=== PATIENT | male | born 1950 | race Hispanic/Latino ===

== ENCOUNTER 2017-05-09 14:30 | Inpatient (IN) | payer OTHER ==
[~2017-05-09] VITALS: Ht 175.3 cm; Wt 92.5 kg
[2017-05-23 16:47] VITALS: BP 150/79
[2017-05-23 16:56] LABS: BASOPHILS % (AUTO) 3.4 % (0.0-5.0); EOSINOPHILS % (AUTO) 7.8 % (0.0-8.0); HEMATOCRIT 41.6 % (42-54); LYMPHOCYTES % (AUTO) 29.9 % (21.0-51.0); MEAN CORPUSCULAR HEMOGLOBIN 27.6 pg (27.0-33.0); MEAN CORPUSCULAR HGB CONC 33.2 g/dL (32.0-36.0); MEAN CORPUSCULAR VOLUME 83.4 fL (79-99); NEUTROPHILS % (AUTO) 51.9 % (40.0-77.0); PLATELET COUNT (AUTO) 306 K/uL (130-400); RED BLOOD CELL COUNT(AUTO) 4.98 MIL/uL (4.50-6.20); RED CELL DISTRIBUTION WIDTH 15.9 % (11.0-15.5); WHITE BLOOD COUNT (AUTO) 12.8 K/uL (4.8-10.8)
[2017-05-23 16:56] LABS: APPEARANCE,URINE Clear (CLEAR); BILIRUBIN,URINE Negative (NEGATIVE); COLOR,URINE Yellow (YELLOW); GLUCOSE, URINE (UA) Negative (NEGATIVE); KETONES,URINE Negative (NEGATIVE); LEUKOCYTE ESTERASE ,URINE Large (NEGATIVE); NITRATE,URINE Negative (NEGATIVE); OCCULT BLOOD,URINE Negative (NEGATIVE); PH,URINE 5.5 (5.0-8.0); PROTEIN,URINE Negative (NEGATIVE); UROBILINOGEN,URINE 0.2 mg/dL (0.2-1.0)
[2017-05-23] MEDS ORDERED: GLIP10TA9 PO (17:02)
[2017-05-23] MEDS ORDERED: OMEG1CAP67 PO (17:02)
[2017-05-23] MEDS ORDERED: GEMF600T3 PO (17:02)
[2017-05-23] MEDS ORDERED: METF10004 PO (17:02)
[2017-05-23] MEDS ORDERED: LOSA50TA37 PO (17:02)
[2017-05-23] MEDS ORDERED: ASPI-1197 PO (17:02)
[2017-05-23] MEDS ORDERED: METO50TA18 PO (17:02)
[2017-05-23] MEDS ORDERED: NPH,100V11 SQ ×2 (17:02)
[2017-05-23] MEDS ORDERED: MULTIVITAMIN PO (17:02)
[2017-05-23] MEDS ORDERED: TAMS0.4C32 PO (17:02)
[2017-05-23 17:17] LABS: RBC,URINE 0-1 /HPF (0-1)
[2017-05-23 17:22] LABS: INR 0.95 (0.85-1.15)
[2017-05-23 17:23] LABS: BACTERIA,URINE Rare /HPF (None Seen); SQUAMOUS EPITHELIAL CELL,UR Rare /HPF (0-2)
[2017-05-23 17:39] LABS: CREATININE 1.3 mg/dL (0.5-1.5); POTASSIUM 5.3 mmol/L (3.5-5.1)
[2017-05-24] VITALS (20 sets, daily range): BP systolic 102–147; BP diastolic 52–85
[2017-05-24] MEDS: CEFAZOLIN SODIUM 1 GM VIAL IVP SCH ×3 (06:00→18:19)
[2017-05-24] MEDS ORDERED: SODIUM CHLORIDE 0.9% 1000ML 1,000 ML IV ONE (09:57)
[2017-05-24] MEDS: GENTAMICIN SULFATE 240 MG in SODIUM CHLORIDE 0.9% 100 ML IV SCH ×2 (10:24)
[2017-05-24] MEDS ORDERED: BETA1TAB20 PO (10:32)
[2017-05-24] MEDS ORDERED: CEFAZOLIN SODIUM 1 GM VIAL ONE (10:38)
[2017-05-24] MEDS ORDERED: BUPIVACAINE/EPI/PF 0.25% 30ML VIAL IJ ONE (10:38)
[2017-05-24] MEDS ORDERED: TRANEXAMIC ACID 1000MG/10ML IV ONE (10:39)
[2017-05-24] MEDS ORDERED: KETOROLAC TROMETHAMINE 15MG/ML ONE (10:54)
[2017-05-24] MEDS ORDERED: OXYCODONE HCL 10 MG TAB.SR.12H PO ONE (10:54)
[2017-05-24] MEDS ORDERED: ACETAMINOPHEN EXTRA STRENGTH 500 MG TABLET ONE (10:54)
[2017-05-24] MEDS ORDERED: METOCLOPRAMIDE 10 MG/2 ML VIAL ONE (10:54)
[2017-05-24] MEDS ORDERED: CELECOXIB 200 MG CAP ONE (10:54)
[2017-05-24] MEDS ORDERED: FENTANYL CITRATE PF 50 MCG/1 ML 2ML VIAL ONE (12:05)
[2017-05-24] MEDS ORDERED: MIDAZOLAM HCL 1 MG/ML 2ML VIAL ONE (12:05)
[2017-05-24] MEDS ORDERED: PROPOFOL 10 MG/ML 20ML VIAL IV ONE (12:05)
[2017-05-24] MEDS ORDERED: ROPIVACAINE 0.5% 5MG/ML 30ML IJ ONE ×2 (12:09→14:09)
[2017-05-24] MEDS ORDERED: GLYCOPYRROLATE 0.2 MG/ML 5 ML VIAL ONE (14:09)
[2017-05-24] MEDS ORDERED: NEOSTIGMINE METHYLSULFATE 1MG/ML IV ONE (14:09)
[2017-05-24] MEDS ORDERED: ONDANSETRON HCL MDV 20ML 2 MG/ML VIAL ONE (14:09)
[2017-05-24] MEDS ORDERED: DEXAMETHASONE SOD PHOSPHATE 10MG/ML 1ML VIAL ONE (14:09)
[2017-05-24] MEDS ORDERED: DIPHENHYDRAMINE HCL 25 MG CAPSULE PO PRN (14:30)
[2017-05-24] MEDS ORDERED: FERROUS FUMARATE 324 MG TABLET PO PRN (14:30)
[2017-05-24] MEDS ORDERED: TEMAZEPAM 15 MG CAPSULE PO PRN (14:30)
[2017-05-24] MEDS: ACETAMINOPHEN 325 MG TAB PO SCH ×2 (14:30→20:30)
[2017-05-24] MEDS ORDERED: POTASSIUM CHLORIDE 10% ELIXIR 20 MEQ/15 ML UDCUP PO PRN (14:30)
[2017-05-24] MEDS ORDERED: POTASSIUM CHLORIDE 20 MEQ ERTAB PO PRN (14:30)
[2017-05-24] MEDS ORDERED: PROMETHAZINE HCL 25 MG/ML 1ML AMPULE IM PRN (14:30)
[2017-05-24] MEDS ORDERED: TRAMADOL HCL 50 MG TABLET PO PRN (14:30)
[2017-05-24] MEDS ORDERED: DiphenhydrAMINE HCL 50 MG/ML VIAL IVP PRN (14:30)
[2017-05-24] MEDS ORDERED: LIDOCAINE HCL-MPF 1% 2ML VIAL IVP PRN (14:30)
[2017-05-24] MEDS ORDERED: POTASSIUM CHLORIDE 20MEQ/100ML 100 ML IV PRN (14:30)
[2017-05-24] MEDS ORDERED: MEPERIDINE-PF 25 MG/ML SYG ONE (14:57)
[2017-05-24] MEDS: INSULIN HUMULIN R 100 UNIT/ML 3ML SQ SCH ×2 (16:30→20:37)
[2017-05-24] MEDS: SODIUM CHLORIDE 0.9% 1000ML 1,000 ML IV SCH ×2 (16:43→23:09)
[2017-05-24] MEDS: METFORMIN HCL 500 MG TABLET PO SCH (17:01)
[2017-05-24] MEDS: GLIPIZIDE 5 MG TABLET PO SCH (17:01)
[2017-05-24] MEDS ORDERED: COMPOUND IV REFRIGERATED 1 EACH IVSOLN MISC PRN ×2 (17:15→17:45)
[2017-05-24] MEDS ORDERED: CEFAZOLIN 2GM / 50 ML 50 ML IV SCH (19:30)
[2017-05-24] MEDS: METOPROLOL TARTRATE 50 MG TAB PO SCH (20:30)
[2017-05-24] MEDS: TAMSULOSIN HCL 0.4 MG CAP.ER.24H PO SCH (20:30)
[2017-05-24] MEDS: LOSARTAN 50 MG TABLET PO SCH (20:30)
[2017-05-24] MEDS: CELECOXIB 200 MG CAP PO SCH (20:30)
[2017-05-24] MEDS: ASPIRIN 325 MG TABLET PO SCH (20:30)
[2017-05-24] MEDS: FISH OIL 1000 MG/CAP PO SCH (20:31)
[2017-05-24] MEDS: GEMFIBROZIL 600 MG TABLET PO SCH (20:31)
[2017-05-24] MEDS: KETOROLAC TROMETHAMINE 15MG/ML IV PRN (20:34)
[2017-05-24] MEDS ORDERED: FAMOTIDINE 20MG TAB 20 MG TAB PO SCH (21:00)
[2017-05-24] MEDS ORDERED: PREGABALIN 25 MG CAP PO SCH (21:00)
[2017-05-24] MEDS: OXYCODONE HCL 5 MG TAB PO PRN (21:51)
[2017-05-24] MEDS: INSULIN NPH 100 UNIT/ML 3ML SQ SCH (21:57)
[2017-05-25] VITALS (7 sets, daily range): BP systolic 116–158; BP diastolic 64–82
[2017-05-25] MEDS: CEFAZOLIN SODIUM 1 GM VIAL IVP SCH (02:13)
[2017-05-25] MEDS: OXYCODONE HCL 5 MG TAB PO PRN ×2 (02:13→16:32)
[2017-05-25] MEDS: ACETAMINOPHEN 325 MG TAB PO SCH ×4 (02:13→20:44)
[2017-05-25 05:25] LABS: HEMATOCRIT 32.4 % (42-54); MEAN CORPUSCULAR HEMOGLOBIN 27.3 pg (27.0-33.0); MEAN CORPUSCULAR HGB CONC 32.9 g/dL (32.0-36.0); MEAN CORPUSCULAR VOLUME 83.1 fL (79-99); PLATELET COUNT (AUTO) 221 K/uL (130-400); RED CELL DISTRIBUTION WIDTH 15.3 % (11.0-15.5); WHITE BLOOD COUNT (AUTO) 14.5 K/uL (4.8-10.8)
[2017-05-25 05:42] LABS: CREATININE 1.5 mg/dL (0.5-1.5)
[2017-05-25] MEDS: INSULIN HUMULIN R 100 UNIT/ML 3ML SQ SCH ×4 (06:00→20:56)
[2017-05-25] MEDS ORDERED: PHARMACY COMMUNICATION MISC SCH (09:00)
[2017-05-25] MEDS: MULTIVITAMIN WITH MINERALS TABLET PO SCH (09:00)
[2017-05-25] MEDS: KETOROLAC TROMETHAMINE 15MG/ML IV PRN ×2 (09:33→20:52)
[2017-05-25] MEDS: SODIUM CHLORIDE 0.9% 1000ML 1,000 ML IV SCH (10:19)
[2017-05-25] MEDS: INSULIN NPH 100 UNIT/ML 3ML SQ SCH ×2 (10:22→20:55)
[2017-05-25] MEDS: CELECOXIB 200 MG CAP PO SCH ×2 (10:23→20:42)
[2017-05-25] MEDS: GEMFIBROZIL 600 MG TABLET PO SCH ×2 (10:23→20:41)
[2017-05-25] MEDS: CALCIUM CARBONATE 500 MG TABLET PO PRN ×2 (10:23→22:56)
[2017-05-25] MEDS: FISH OIL 1000 MG/CAP PO SCH ×2 (10:23→20:41)
[2017-05-25] MEDS: ASPIRIN 325 MG TABLET PO SCH ×2 (10:23→20:42)
[2017-05-25] MEDS: PREGABALIN 75 MG CAPSULE PO SCH ×2 (10:23→20:41)
[2017-05-25] MEDS: METOPROLOL TARTRATE 50 MG TAB PO SCH ×2 (10:23→20:42)
[2017-05-25] MEDS: POLYETHYLENE GLYCOL 3350 17 GM POWD.PACK PO SCH (10:24)
[2017-05-25] MEDS: GLIPIZIDE 5 MG TABLET PO SCH ×2 (10:27→16:32)
[2017-05-25] MEDS: METFORMIN HCL 500 MG TABLET PO SCH ×2 (10:27→16:32)
[2017-05-25] MEDS: GENTAMICIN SULFATE 240 MG in SODIUM CHLORIDE 0.9% 100 ML IV SCH (10:29)
[2017-05-25] MEDS: PSYLLIUM SEED 1 EACH PACKET PO SCH (11:56)
[2017-05-25] MEDS: TAMSULOSIN HCL 0.4 MG CAP.ER.24H PO SCH (20:41)
[2017-05-25] MEDS: LOSARTAN 50 MG TABLET PO SCH (20:41)
[2017-05-26] MEDS: ACETAMINOPHEN 325 MG TAB PO SCH ×3 (03:48→14:36)
[2017-05-26 04:00] VITALS: BP 119/66
[2017-05-26] MEDS: INSULIN HUMULIN R 100 UNIT/ML 3ML SQ SCH ×2 (05:46→13:09)
[2017-05-26] MEDS: FISH OIL 1000 MG/CAP PO SCH (08:39)
[2017-05-26] MEDS: OXYCODONE HCL 5 MG TAB PO PRN (08:39)
[2017-05-26] MEDS: METFORMIN HCL 500 MG TABLET PO SCH (08:39)
[2017-05-26] MEDS: MULTIVITAMIN WITH MINERALS TABLET PO SCH (08:39)
[2017-05-26] MEDS: GEMFIBROZIL 600 MG TABLET PO SCH (08:39)
[2017-05-26] MEDS: METOPROLOL TARTRATE 50 MG TAB PO SCH (08:40)
[2017-05-26] MEDS: GLIPIZIDE 5 MG TABLET PO SCH (08:40)
[2017-05-26] MEDS: PREGABALIN 75 MG CAPSULE PO SCH (08:40)
[2017-05-26] MEDS: ASPIRIN 325 MG TABLET PO SCH (08:40)
[2017-05-26] MEDS: CELECOXIB 200 MG CAP PO SCH (08:40)
[2017-05-26 08:42] VITALS: BP 137/67
[2017-05-26] MEDS: POLYETHYLENE GLYCOL 3350 17 GM POWD.PACK PO SCH (08:45)
[2017-05-26] MEDS: INSULIN NPH 100 UNIT/ML 3ML SQ SCH (08:51)
[2017-05-26] MEDS: GENTAMICIN SULFATE 240 MG in SODIUM CHLORIDE 0.9% 100 ML IV SCH (10:45)
[2017-05-26 11:51] VITALS: BP 126/68
[2017-05-26] MEDS: PSYLLIUM SEED 1 EACH PACKET PO SCH (13:00)
[2017-05-26] MEDS: KETOROLAC TROMETHAMINE 15MG/ML IV PRN (13:09)
[2017-05-26] MEDS ORDERED: BISACODYL 5 MG TABLET.DR PO PRN (14:30)
[2017-05-26] MEDS ORDERED: ASPI-1012 PO (15:14)
[2017-05-26] MEDS ORDERED: HYDR-309 PO (15:14)
[2017-05-27] MEDS ORDERED: BISACODYL 10 MG SUPP.RECT RC PRN (14:30)
== END 2017-05-26 17:34 | disposition home health service (06) | DRG 470 ==
LOC: EDSTATUS 05-23 16:00 → DAHIP 05-24 09:10 → 4AH 05-24 15:33
PROVIDERS: ADMIT Orthopaedic Surgery; ATTEND Orthopaedic Surgery
PROC: 0SRD0JZ Replacement of Left Knee Joint with Synthetic Substitute, Open Approach (ICD-10-PCS; principal; 2017-05-24 12:03)
DX: M17.12 Unilateral primary osteoarthritis, left knee (principal); E66.01 Morbid (severe) obesity due to excess calories; E11.9 Type 2 diabetes mellitus without complications; I10 Essential (primary) hypertension; Z96.652 Presence of left artificial knee joint; G89.29 Other chronic pain; Z68.30 Body mass index [BMI] 30.0-30.9, adult; Z88.8 Allergy status to other drugs, medicaments and biological substances
CPT/HCPCS: 36415; 80048; 81001; 82948; 85025; 85027; 85610; 85730; 88304; 88311; 96374; 96375; A4218; C1713; J0690; J1100; J1580; J1815; J1885; J2175; J2250; J2704; J2710; J2765; J2795; J3010; J3490; J7030

== ENCOUNTER → 2018-03-28 | Outpatient (CLI) | payer OTHER ==
[~2018-03-28] MED LIST: ASPI-1012 PO; BETA1TAB20 PO; GEMF600T5 PO; GLIP10TA9 PO; HYDR-4457 PO; LOSA50TA64 PO; METF-446 PO; METO50TA18 PO; NPH,100V11 SQ; OMEG1CAP67 PO; TAMS0.4C32 PO
== END | disposition home or self-care (01) ==
LOC: OIH 11:01
PROVIDERS: ATTEND Family Medicine
DX: I10 Essential (primary) hypertension (principal); I70.0 Atherosclerosis of aorta
CPT/HCPCS: 71046

== ENCOUNTER → 2020-04-03 | Outpatient (CLI) | payer OTHER ==
[~2020-04-03] MED LIST changes: -GEMF600T5 PO; +GEMF600T89 PO
== END | disposition home or self-care (01) ==
LOC: RAH 08:33
PROVIDERS: ATTEND Urology
DX: N28.1 Cyst of kidney, acquired (principal); N32.3 Diverticulum of bladder
CPT/HCPCS: 76770

== ENCOUNTER 2020-12-28 10:00 | Inpatient (IN) | payer OTHER ==
[~2020-12-28] VITALS: Ht 172.7 cm; Wt 95.3 kg
[~2020-12-28 10:00] MED LIST changes: -ASPI-1012 PO; -GEMF600T89 PO; -HYDR-4457 PO
[2020-12-28 10:24] LABS: BASOPHILS % (AUTO) 0.8 % (0.0-5.0); EOSINOPHILS % (AUTO) 4.7 % (0.0-8.0); HEMATOCRIT 43.8 % (42-54); LYMPHOCYTES % (AUTO) 26.2 % (21.0-51.0); MEAN CORPUSCULAR HEMOGLOBIN 28.5 pg (27.0-33.0); MEAN CORPUSCULAR VOLUME 89.2 fL (79-99); MONOCYTES % (AUTO) 7.7 % (3.0-13.0); NEUTROPHILS % (AUTO) 60.2 % (40.0-77.0); PLATELET COUNT (AUTO) 200 K/uL (130-400); RED BLOOD CELL COUNT(AUTO) 4.91 MIL/uL (4.50-6.20); RED CELL DISTRIBUTION WIDTH 14.9 % (11.0-15.5); WHITE BLOOD COUNT (AUTO) 11.5 K/uL (4.8-10.8)
[2020-12-28 10:26] LABS: APPEARANCE,URINE Clear (CLEAR); BILIRUBIN,URINE Negative (NEGATIVE); COLOR,URINE Yellow (YELLOW); GLUCOSE, URINE (UA) Negative (NEGATIVE); KETONES,URINE Negative (NEGATIVE); LEUKOCYTE ESTERASE ,URINE Negative (NEGATIVE); NITRATE,URINE Negative (NEGATIVE); OCCULT BLOOD,URINE Negative (NEGATIVE); PH,URINE 5.5 (5.0-8.0); PROTEIN,URINE Trace mg/dL (NEGATIVE); UROBILINOGEN,URINE 0.2 mg/dL (0.2-1.0)
[2020-12-28 10:34] LABS: BACTERIA,URINE Rare /HPF (None Seen); RBC,URINE 0-1 /HPF (0-1); SQUAMOUS EPITHELIAL CELL,UR Rare /HPF (0-2); WBC,URINE 0-1 /HPF (0-1)
[2020-12-28 10:34] LABS: CREATININE 1.3 mg/dL (0.5-1.5); POTASSIUM 4.7 mmol/L (3.5-5.1)
[2020-12-28 10:35] LABS: PROTHROMBIN TIME 10.9 SEC (9.6-11.6)
[2020-12-29 10:14] VITALS: BP 151/81
[2020-12-29] MEDS ORDERED: EZET10TA48 PO (10:49)
[2020-12-29] MEDS ORDERED: AEC81 PO (10:49)
[2020-12-29] MEDS ORDERED: ALEN70TA80 PO (10:49)
[2020-12-29] MEDS ORDERED: ATOR10 PO (10:49)
[2020-12-30] VITALS (15 sets, daily range): BP systolic 134–166; BP diastolic 70–91
[2020-12-30] MEDS ORDERED: LACTATED RINGERS 1000ML 0 ML IV ONE (10:27)
[2020-12-30] MEDS: 0.9%NACL 1000ML 1,000 ML IV ONE ×2 (10:32→11:07)
[2020-12-30] MEDS: CEFAZOLIN SODIUM 1 GM VIAL IVP SCH ×2 (11:07→16:45)
[2020-12-30] MEDS ORDERED: TRANEXAMIC ACID 1000MG/10ML ONE ×2 (15:37→19:15)
[2020-12-30] MEDS ORDERED: CEFAZOLIN SODIUM 1 GM VIAL ONE (15:37)
[2020-12-30] MEDS ORDERED: ONDANSETRON 4MG INJ ONE (16:00)
[2020-12-30] MEDS ORDERED: MIDAZOLAM HCL 1 MG/ML 2ML VIAL ONE (16:00)
[2020-12-30] MEDS ORDERED: LIDOCAINE PF 100MG/5ML (2%) SYRINGE 5ML ONE (16:04)
[2020-12-30] MEDS ORDERED: PROPOFOL 10 MG/ML 20ML VIAL IV ONE (16:05)
[2020-12-30] MEDS ORDERED: ROCURONIUM 10MG/1ML SYR 10 MG/ML ML ONE ×2 (16:05→17:07)
[2020-12-30] MEDS ORDERED: ROPIVACAINE 0.5% 5MG/ML 30ML IJ ONE (16:10)
[2020-12-30] MEDS ORDERED: DEXAMETHASONE SOD PHOSPHATE 10MG/ML 1ML VIAL ONE (16:16)
[2020-12-30] MEDS ORDERED: FENTANYL CITRATE PF 50 MCG/1 ML 2ML VIAL ONE ×2 (16:32→17:13)
[2020-12-30] MEDS ORDERED: GLYCOPYRROLATE 1 MG/5 ML SYRINGE ONE (18:50)
[2020-12-30] MEDS ORDERED: NEOSTIGMINE 5MG/5ML SYR IV ONE (18:50)
[2020-12-30] MEDS ORDERED: ESMOLOL HCL 10 MG/ML 10 ML VIAL ONE (18:53)
[2020-12-30] MEDS ORDERED: KCL 20 MEQ ERTAB PO PRN (19:00)
[2020-12-30] MEDS ORDERED: TEMAZEPAM 15 MG CAPSULE PO PRN (19:00)
[2020-12-30] MEDS ORDERED: POTASSIUM CHLORIDE 20MEQ/100ML 100 ML IV PRN (19:00)
[2020-12-30] MEDS ORDERED: OXYCODONE HCL 5 MG TAB PO PRN (19:00)
[2020-12-30] MEDS: ACETAMINOPHEN 500 MG TABLET PO SCH (19:00)
[2020-12-30] MEDS ORDERED: CALCIUM CARB 500MG PO PRN (19:00)
[2020-12-30] MEDS ORDERED: LIDOCAINE HCL-MPF 1% 2ML VIAL IV PRN (19:00)
[2020-12-30] MEDS ORDERED: ONDANSETRON 4MG INJ IVP PRN (19:00)
[2020-12-30] MEDS: 0.9%NACL 1000ML 1,000 ML IV SCH (19:00)
[2020-12-30] MEDS ORDERED: TRAMADOL HCL 50 MG TABLET PO PRN (19:00)
[2020-12-30] MEDS ORDERED: FERROUS FUMARATE 324 MG TABLET PO PRN (19:00)
[2020-12-30] MEDS ORDERED: DiphenhydrAMINE HCL 50 MG/ML VIAL IVP PRN (19:00)
[2020-12-30] MEDS ORDERED: POTASSIUM CHLORIDE 10% ELIXIR 20 MEQ/15 ML UDCUP PO PRN (19:00)
[2020-12-30] MEDS: PREGABALIN 25 MG CAP PO SCH (21:00)
[2020-12-30] MEDS: INSULIN HUMULIN R 100 UNIT/ML 3ML SQ SCH (21:00)
[2020-12-30] MEDS: ASPIRIN 81 MG EC TAB PO SCH (21:00)
[2020-12-30] MEDS: CELECOXIB 200 MG CAP PO SCH (21:00)
[2020-12-31] MEDS: CEFAZOLIN SODIUM 1 GM VIAL IVP SCH ×2 (00:15→09:45)
[2020-12-31] MEDS: OXYCODONE HCL 5 MG TAB PO PRN ×3 (02:53→21:28)
[2020-12-31] MEDS: ACETAMINOPHEN 500 MG TABLET PO SCH ×3 (02:54→21:30)
[2020-12-31 03:50] VITALS: BP 152/82
[2020-12-31] MEDS: 0.9%NACL 1000ML 1,000 ML IV SCH ×2 (05:00→15:00)
[2020-12-31 05:19] LABS: HEMATOCRIT 36.6 % (42-54); MEAN CORPUSCULAR HEMOGLOBIN 28.2 pg (27.0-33.0); MEAN CORPUSCULAR HGB CONC 32.2 g/dL (32.0-36.0); MEAN CORPUSCULAR VOLUME 87.4 fL (79-99); RED BLOOD CELL COUNT(AUTO) 4.19 MIL/uL (4.50-6.20); WHITE BLOOD COUNT (AUTO) 12.4 K/uL (4.8-10.8)
[2020-12-31 05:33] LABS: CREATININE 1.3 mg/dL (0.5-1.5); POTASSIUM 4.3 mmol/L (3.5-5.1)
[2020-12-31] MEDS: INSULIN HUMULIN R 100 UNIT/ML 3ML SQ SCH ×4 (06:55→21:39)
[2020-12-31 07:51] VITALS: BP 160/76
[2020-12-31] MEDS: CELECOXIB 200 MG CAP PO SCH ×2 (08:17→21:28)
[2020-12-31] MEDS: ASPIRIN 81 MG EC TAB PO SCH ×2 (08:18→21:29)
[2020-12-31] MEDS: GLIPIZIDE 5 MG TABLET PO SCH ×2 (08:18→17:35)
[2020-12-31] MEDS: PREGABALIN 25 MG CAP PO SCH ×2 (08:19→21:28)
[2020-12-31] MEDS: METFORMIN HCL 500 MG TABLET PO SCH ×2 (08:19→17:34)
[2020-12-31] MEDS: METOPROLOL TARTRATE 50 MG TAB PO SCH ×2 (08:20→21:29)
[2020-12-31] MEDS: POLYETHYLENE GLYCOL 3350 17 GM POWD.PACK PO SCH (08:20)
[2020-12-31] MEDS: INSULIN NPH 100 UNIT/ML 3ML SQ SCH (08:31)
[2020-12-31] MEDS: ALENDRONATE SODIUM 35 MG TAB PO SCH (09:00)
[2020-12-31] MEDS ORDERED: TAMSULOSIN HCL 0.4 MG CAP.ER.24H PO SCH ×2 (09:00→21:00)
[2020-12-31 11:15] VITALS: BP 156/91
[2020-12-31] MEDS: KETOROLAC 15MG/ML VIAL (15MG/ML) IV PRN (13:48)
[2020-12-31 16:02] VITALS: BP 135/74
[2020-12-31 20:54] VITALS: BP 156/77
[2020-12-31] MEDS ORDERED: INSULIN NPH 100 UNIT/ML 3ML SQ SCH (21:00)
[2020-12-31] MEDS ORDERED: EZETIMIBE 10 MG TAB PO SCH (21:00)
[2020-12-31] MEDS ORDERED: LOSARTAN 50 MG TABLET PO SCH (21:00)
[2020-12-31] MEDS ORDERED: ATORVASTATIN 10 MG TABLET PO SCH (21:00)
[2021-01-01 04:16] VITALS: BP 119/58
[2021-01-01] MEDS: ACETAMINOPHEN 500 MG TABLET PO SCH ×2 (06:51→14:26)
[2021-01-01] MEDS: OXYCODONE HCL 5 MG TAB PO PRN ×2 (06:53→12:55)
[2021-01-01] MEDS: INSULIN HUMULIN R 100 UNIT/ML 3ML SQ SCH ×3 (07:01→16:18)
[2021-01-01 07:41] VITALS: BP 123/59
[2021-01-01] MEDS: CELECOXIB 200 MG CAP PO SCH (09:18)
[2021-01-01] MEDS: METOPROLOL TARTRATE 50 MG TAB PO SCH (09:18)
[2021-01-01] MEDS: ASPIRIN 81 MG EC TAB PO SCH (09:18)
[2021-01-01] MEDS: KETOROLAC 15MG/ML VIAL (15MG/ML) IV PRN (09:19)
[2021-01-01] MEDS: PREGABALIN 25 MG CAP PO SCH (09:19)
[2021-01-01] MEDS: POLYETHYLENE GLYCOL 3350 17 GM POWD.PACK PO SCH (09:24)
[2021-01-01] MEDS: METFORMIN HCL 500 MG TABLET PO SCH ×2 (09:27→16:16)
[2021-01-01] MEDS: GLIPIZIDE 5 MG TABLET PO SCH ×2 (09:27→16:16)
[2021-01-01] MEDS: INSULIN NPH 100 UNIT/ML 3ML SQ SCH (09:44)
[2021-01-01 12:00] VITALS: BP 135/62
[2021-01-01 16:00] VITALS: BP 116/62
[2021-01-01] MEDS: ALENDRONATE SODIUM 35 MG TAB PO SCH (16:17)
[2021-01-01] MEDS ORDERED: HYDR-4060 PO (18:10)
[2021-01-01] MEDS ORDERED: AEC81 PO (18:10)
[2021-01-02] MEDS ORDERED: BISACODYL 10 MG SUPP.RECT RC PRN (19:00)
== END 2021-01-01 20:00 | disposition home health service (06) | DRG 470 ==
LOC: DAHIP 12-30 09:26 → 4BH 12-30 20:15
PROVIDERS: ADMIT Orthopaedic Surgery; ATTEND Orthopaedic Surgery
PROC: 3E0T33Z Introduction of Anti-inflammatory into Peripheral Nerves and Plexi, Percutaneous Approach (ICD-10-PCS; 2020-12-30)
PROC: 0SRC0J9 Replacement of Right Knee Joint with Synthetic Substitute, Cemented, Open Approach (ICD-10-PCS; principal; 2020-12-30 17:08)
PROC: 3E0T3BZ Introduction of Anesthetic Agent into Peripheral Nerves and Plexi, Percutaneous Approach (ICD-10-PCS; 2020-12-30 17:08)
DX: M17.11 Unilateral primary osteoarthritis, right knee (principal); I10 Essential (primary) hypertension; E11.9 Type 2 diabetes mellitus without complications; E78.5 Hyperlipidemia, unspecified; G89.29 Other chronic pain; Z20.822 Contact with and (suspected) exposure to COVID-19; Z96.652 Presence of left artificial knee joint; D64.9 Anemia, unspecified; E66.01 Morbid (severe) obesity due to excess calories; Z68.31 Body mass index [BMI] 31.0-31.9, adult; Z87.891 Personal history of nicotine dependence; Z88.8 Allergy status to other drugs, medicaments and biological substances; Z80.9 Family history of malignant neoplasm, unspecified
CPT/HCPCS: 36415; 80048; 81001; 82948; 85025; 85027; 85610; 87088; 87635; 87641; 88305; 88311; 97039; G0378; J0690; J1100; J1815; J1885; J2001; J2250; J2405; J2704; J2710; J2795; J3010; J3490; J7030; J7120

== ENCOUNTER → 2021-06-01 | Outpatient (CLI) | payer OTHER ==
[~2021-06-01] MED LIST changes: +AEC81 PO; +ALEN70TA80 PO; +ATOR10 PO; +EZET10TA48 PO; +HYDR-4060 PO
== END | disposition home or self-care (01) ==
LOC: OIH 09:21
PROVIDERS: ATTEND Internal Medicine Cardiovascular Disease
DX: Z13.6 Encounter for screening for cardiovascular disorders (principal)
CPT/HCPCS: 75571

== ENCOUNTER → 2021-07-12 | Outpatient (CLI) | payer OTHER ==
[~2021-07-12] MED LIST changes: +REGADENOSON 0.4 MG/5 ML PF SYG IVP SCH
== END | disposition home or self-care (01) ==
LOC: SHCH 07:50
PROVIDERS: ATTEND Internal Medicine Cardiovascular Disease
DX: E78.5 Hyperlipidemia, unspecified (principal)
CPT/HCPCS: 78452; 93017; 96374; A9500 ×2; J2785

== ENCOUNTER → 2021-08-13 | Outpatient (CLI) | payer OTHER ==
[~2021-08-13] MED LIST changes: -REGADENOSON 0.4 MG/5 ML PF SYG IVP SCH
== END | disposition home or self-care (01) ==
LOC: SHCH 14:51
PROVIDERS: ATTEND Internal Medicine Cardiovascular Disease
DX: I67.9 Cerebrovascular disease, unspecified (principal); I25.10 Atherosclerotic heart disease of native coronary artery without angina pectoris; I10 Essential (primary) hypertension; I69.398 Other sequelae of cerebral infarction; H53.8 Other visual disturbances; E11.9 Type 2 diabetes mellitus without complications; E78.5 Hyperlipidemia, unspecified; R93.1 Abnormal findings on diagnostic imaging of heart and coronary circulation; R94.39 Abnormal result of other cardiovascular function study; Z72.0 Tobacco use; Z79.899 Other long term (current) drug therapy
CPT/HCPCS: 93880

== ENCOUNTER 2021-09-03 05:43 | Day surgery (SDC) | payer OTHER ==
[2021-09-01 12:18] LABS: HEMATOCRIT 46.2 % (42-54); LYMPHOCYTES % (AUTO) 24.5 % (21.0-51.0); MEAN CORPUSCULAR HEMOGLOBIN 28.2 pg (27.0-33.0); MEAN CORPUSCULAR HGB CONC 31.8 g/dL (32.0-36.0); MEAN CORPUSCULAR VOLUME 88.5 fL (79-99); NEUTROPHILS % (AUTO) 61.1 % (40.0-77.0); PLATELET COUNT (AUTO) 252 K/uL (130-400); RED BLOOD CELL COUNT(AUTO) 5.22 MIL/uL (4.50-6.20); RED CELL DISTRIBUTION WIDTH 15.5 % (11.0-15.5); WHITE BLOOD COUNT (AUTO) 13.5 K/uL (4.8-10.8)
[2021-09-01 12:21] LABS: APPEARANCE,URINE CLEAR (CLEAR); BILIRUBIN,URINE NEGATIVE (NEGATIVE); COLOR,URINE YELLOW (YELLOW); GLUCOSE, URINE (UA) NEGATIVE (NEGATIVE); KETONES,URINE 5 mg/dL (NEGATIVE); LEUKOCYTE ESTERASE ,URINE NEGATIVE (NEGATIVE); NITRATE,URINE NEGATIVE (NEGATIVE); OCCULT BLOOD,URINE NEGATIVE (NEGATIVE); PH,URINE 5.5 (5.0-8.0); PROTEIN,URINE NEGATIVE (NEGATIVE); UROBILINOGEN,URINE 0.2 mg/dL (0.2-1.0)
[2021-09-01 12:24] LABS: BACTERIA,URINE Rare /HPF (None Seen); HYALINE CASTS, URINE 0-1 /LPF (0-1 /LPF); RBC,URINE 0-1 /HPF (0-1); SQUAMOUS EPITHELIAL CELL,UR Few /HPF (0-2); WBC,URINE 0-1 /HPF (0-1)
[2021-09-01 12:27] LABS: CREATININE 1.5 mg/dL (0.5-1.5); POTASSIUM 5.6 mmol/L (3.5-5.1)
[2021-09-01 12:31] LABS: INR 0.93 (0.85-1.15); PROTHROMBIN TIME 10.1 SEC (9.6-11.6)
[2021-09-01 12:32] LABS: PARTIAL THROMBOPLASTIN TIME 25.1 SEC (26.3-35.5)
[2021-09-01 12:40] LABS: B-TYPE NATRIURETIC PEPTIDE 26 pg/mL (0-100)
[2021-09-01 16:16] VITALS: BP 183/82
[~2021-09-03] VITALS: Ht 172.7 cm; Wt 95.0 kg
[2021-09-03] VITALS (12 sets, daily range): BP systolic 111–164; BP diastolic 58–73
[~2021-09-03 05:43] MED LIST changes: +CHOL200013 PO; +CYAN100084 PO; +GEMF600T89 PO
[2021-09-03] MEDS ORDERED: 0.9%NACL 1000ML 1,000 ML IV ONE (07:01)
[2021-09-03] MEDS ORDERED: SODIUM BICARB 50MEQ 50ML VIAL 50 ML ONE (08:07)
[2021-09-03] MEDS ORDERED: MIDAZOLAM HCL 1 MG/ML 2ML VIAL ONE ×3 (08:07→09:28)
[2021-09-03] MEDS ORDERED: MEPERIDINE-PF 25 MG/ML SYG ONE ×3 (08:07→09:28)
[2021-09-03] MEDS ORDERED: IOHEXOL-350 50ML VIAL IV ONE (08:07)
[2021-09-03] MEDS ORDERED: IOHEXOL 350 MG/ML 100ML INFUS..BTL IV ONE (08:07)
[2021-09-03] MEDS ORDERED: HEPARIN 10,000 UNIT/10ML (1,000 UNIT/ML) VIAL ONE (08:07)
[2021-09-03] MEDS ORDERED: NITROGLYCERIN 50MG VIAL ONE (08:07)
[2021-09-03] MEDS ORDERED: LIDOCAINE HCL 400MG/20ML VIAL ONE (08:08)
[2021-09-03] MEDS ORDERED: ASPIRIN 325MG EC TAB PO ONE (10:14)
[2021-09-03] MEDS ORDERED: CLOPIDOGREL 300MG TAB ONE (10:15)
[2021-09-03] MEDS ORDERED: GLUCAGON 1MG KIT 1 MG ML IM PRN (11:00)
[2021-09-03] MEDS ORDERED: 0.9%NACL 1000ML 1,000 ML IV SCH (11:00)
[2021-09-03] MEDS ORDERED: DEXTROSE 50%-WATER 50 ML DISP.SYRIN IV PRN (11:00)
[2021-09-03] MEDS ORDERED: INSULIN HUMULIN R 100 UNIT/ML 3ML SQ SCH (11:30)
== END 2021-09-03 16:50 | disposition home or self-care (01) ==
LOC: DAH 05:43
PROVIDERS: ATTEND Internal Medicine Cardiovascular Disease
DX: I25.119 Atherosclerotic heart disease of native coronary artery with unspecified angina pectoris (principal); I10 Essential (primary) hypertension; E11.9 Type 2 diabetes mellitus without complications; M19.90 Unspecified osteoarthritis, unspecified site; I45.10 Unspecified right bundle-branch block; E78.5 Hyperlipidemia, unspecified; Z98.890 Other specified postprocedural states; Z79.4 Long term (current) use of insulin; Z79.899 Other long term (current) drug therapy; Z79.01 Long term (current) use of anticoagulants; Z87.891 Personal history of nicotine dependence; Z86.73 Personal history of transient ischemic attack (TIA), and cerebral infarction without residual deficits
CPT/HCPCS: 80048; 83880; 85025; 85610; 85730; 81001; 36415 ×2; 71045; 93005; 85347 ×2; 82948 ×2; 93458; C9600; C1769; C1887; C1894; C1874 ×2; C1725; J3490 ×3; J7030; J1644 ×3; J2250 ×2; J2175 ×2; Q9967; A4215; A4222; A4221; A4663; A4216; A4606; C9601; Q9965 ×2; A4223 ×3; 96360; 96361; 99156; 99157

== ENCOUNTER → 2021-12-07 | Outpatient (CLI) | payer OTHER | END | disposition home or self-care (01) | LOC: SHCH 08:47 | PROVIDERS: ATTEND Internal Medicine Cardiovascular Disease | DX: I70.202 Unspecified atherosclerosis of native arteries of extremities, left leg (principal); Z95.5 Presence of coronary angioplasty implant and graft | CPT/HCPCS: 93925 ==

== ENCOUNTER → 2021-12-21 | Outpatient (CLI) | payer OTHER ==
[~2021-12-21] MED LIST changes: +IOHEXOL 350 MG/ML 100ML INFUS..BTL IV ONE
== END | disposition home or self-care (01) ==
LOC: RAH 10:20
PROVIDERS: ATTEND Internal Medicine Cardiovascular Disease
DX: I67.9 Cerebrovascular disease, unspecified (principal); I73.9 Peripheral vascular disease, unspecified; I25.10 Atherosclerotic heart disease of native coronary artery without angina pectoris; Z95.5 Presence of coronary angioplasty implant and graft
CPT/HCPCS: 75635; Q9967

== ENCOUNTER → 2023-05-19 | Outpatient (CLI) | payer OTHER ==
[~2023-05-19] MED LIST changes: -IOHEXOL 350 MG/ML 100ML INFUS..BTL IV ONE; +OMEG-133 PO; -OMEG1CAP67 PO
[2023-05-19 09:50] LABS: CREATININE 1.2 mg/dL (0.5-1.3)
== END | disposition home or self-care (01) ==
LOC: LAB 09:10
PROVIDERS: ATTEND Internal Medicine
DX: D13.1 Benign neoplasm of stomach (principal)
CPT/HCPCS: 36415; 82565; 84520

== ENCOUNTER → 2023-05-23 | Outpatient (CLI) | payer OTHER ==
[~2023-05-23] MED LIST changes: +IOHEXOL-350 75 ML VIAL IV ONE
== END ==
LOC: RAH 08:08
PROVIDERS: ATTEND Internal Medicine
DX: K57.30 Diverticulosis of large intestine without perforation or abscess without bleeding (principal); N28.1 Cyst of kidney, acquired; D13.1 Benign neoplasm of stomach
CPT/HCPCS: 74170; Q9967